=== PATIENT | male | born 2000 | race African-American/Black ===

== ENCOUNTER 2021-10-13 12:31 | Emergency (ER) | payer OTHER ==
[2021-10-13 12:48] VITALS: TEMP 98.2
[2021-10-13] MEDS ORDERED: DEXAMETHASONE SOD PHOSPHATE 10 MG/ML 1 ML VIAL IM STA (13:32)
--- NOTE | 2021-10-13 13:45 | ED ---
ENT HPI - General Chief complaint: ENT Stated complaint: sore throat, low back pain Time Seen by Provider: 10/13/21 13:03 Source: patient, RN notes reviewed Mode of arrival: ambulatory Limitations: no limitations - History of Present Illness Initial comments: This is a 20-year-old male who presents to the emergency department for a sore throat. Patient states that this started 3 days ago. Reports associated chest congestion. Denies any coughing. He works at a long-term care facility, and was exposed to a coworker who tested positive for COVID 2 days ago. States that the sore throat is making it difficult to swallow due to the pain. He has been using a lot of numbing throat sprays with little relief. Denies any fevers, chills, cough, dyspnea, chest pain, palpitations, abdominal pain, nausea, vomiting, diarrhea, back pain, or headaches. MD complaint: sore throat Onset/Timin -: days(s) Associated Symptoms: pain with swallowing - Related Data Previous Rx's Medication Instructions Recorded Amoxicillin 500 mg PO Q12HR 10 Days #20 cap 10/13/21 Allergies Allergy/AdvReac Type Severity Reaction Status Date / Time No Known Allergies Allergy Verified 10/13/21 14:24 Review of Systems ROS Statement: Those systems with pertinent positive or pertinent negative responses have been documented in the HPI. ROS Other: All systems not noted in ROS Statement are negative. Past Medical History Past Medical History: No Reported History History of Any Multi-Drug Resistant Organisms: None Reported Past Surgical History: No Surgical Hx Reported Past Psychological History: No Psychological Hx Reported Smoking Status: Never smoker Past Alcohol Use History: None Reported Past Drug Use History: Marijuana General Exam Limitations: no limitations General appearance: alert, in no apparent distress Head exam: Present: atraumatic, normocephalic, normal inspection ENT exam: Present: TM's normal bilaterally, normal external ear exam, other (3+ tonsillar hypertrophy with exudates bilaterally. Posterior pharyngeal erythema.) Neck exam: Present: other (Anterior cervical lymphadenopathy) Respiratory exam: Present: normal lung sounds bilaterally. Absent: respiratory distress, wheezes, rales, rhonchi, stridor Cardiovascular Exam: Present: regular rate, normal rhythm, normal heart sounds. Absent: systolic murmur, diastolic murmur, rubs, gallop, clicks Neurological exam: Present: alert, oriented X3, CN II-XII intact Psychiatric exam: Present: normal affect, normal mood Skin exam: Present: warm, dry, intact, normal color. Absent: rash Course Vital Signs 10/13/21 10/13/21 12:45 15:23 Temperature 98.2 F Pulse Rate 87 90 Respiratory 16 18 Rate Blood Pressure 110/59 125/78 O2 Sat by Pulse 100 96 Oximetry Medical Decision Making - Medical Decision Making This is a 20-year-old male who presents to the emergency department for a sore throat. COVID and influenza testing negative. Patient did test positive for strep throat. He was given IM Decadron for the sore throat and did note improvement in symptoms. Prescription for amoxicillin sent to the pharmacy. Advised to take [id number] ibuprofen and Tylenol as needed for pain and fevers. Prior to discharge, patient states that he has had some intermittent chest discomfort for a long period of time. We discussed that we can perform an EKG and order a chest x-ray for further evaluation. Patient states that he does not currently have insurance and inquired about the least expensive option. I spoke with registration, who believes that the EKG would be the more affordable option. Discussed this with the patient, and advised that his presentation does not appear cardiac, however a chest x-ray in addition to the EKG would offer him more of a complete workup. Patient declined a chest x-ray at this time due to cost. We did proceed with an EKG which was unremarkable. Return precautions reviewed in depth, the patient is instructed to return to the emergency department with any new, worsening, or concerning symptoms. Patient verbalized understanding. This case was discussed in detail with the attending ED physician. Presentation, findings, and treatment plan discussed in detail as well. - Lab Data Lab Results 10/13/21 10/13/21 10/13/21 Range/Units 13:12 13:12 13:41 Coronavirus (PCR) Not Detected (Not Detectd) Influenza Type A RNA Not Detected (Not Detectd) Influenza Type B (PCR) Not Detected (Not Detectd) Group A Strep Rapid Positive A (Negative) - EKG Data EKG Comments: Sinus rhythm. Ventricular rate 83 bpm, FL interval 127 ms, QRS duration 111 ms, QTC 405 ms. Disposition Clinical Impression: Strep pharyngitis Disposition: HOME SELF-CARE Additional Instructions: Return to the emergency department with any new, worsening, or concerning symptoms. Take the amoxicillin twice daily for 10 days. Alternate with ibuprofen and Tylenol as needed for fevers and pain relief. You may also continue using the throat numbing spray. Prescriptions: Amoxicillin 500 mg PO Q12HR 10 Days #20 cap Is patient prescribed a controlled substance at d/c from ED?: No Referrals: None,Stated [Primary Care Provider] - 1-2 days
[2021-10-13 15:25] VITALS: BP 125/78; PULSE 90; RESP 18
== END 2021-10-13 15:24 | disposition home or self-care (01) ==
LOC: EC 12:31
DX: J02.0 Streptococcal pharyngitis (principal); M54.50 Low back pain, unspecified; Z20.822 Contact with and (suspected) exposure to COVID-19
CPT/HCPCS: 93005; 87430; 87502; 87635; 99283; 96372; J1100

== ENCOUNTER → 2022-04-23 | Outpatient (CLI) | payer OTHER ==
--- NOTE | 2022-04-23 12:54 | XR ---
EXAMINATION TYPE: XR Hip Complete LT DATE OF EXAM: 04/23/2022 12:45 PM INDICATION: Patient age:Male; 21 years old; Reason for study: [id number]; COMPARISON: None. TECHNIQUE: The left hip was examined in the frontal and lateral projections and a AP pelvis. FINDINGS: No evidence for acute process, joint dislocation or significant soft tissue swelling. IMPRESSION: No acute process.
--- NOTE | 2022-04-23 12:57 | XR ---
EXAMINATION TYPE: XR lumbosacral spine min 4V DATE OF EXAM: 04/23/2022 12:45 PM INDICATION: Patient age:Male; 21 years old; Reason for study: [id number]; COMPARISON: None TECHNIQUE: Frontal, lateral and coned in L5-S1 lateral views of the spine. FINDINGS: No evidence of any acute osseous pathology. No evidence of loss of vertebral body height i s seen. There is normal alignment of the lumbar vertebral bodies. No significant degeneration changes throughout the spine. IMPRESSION: No acute fracture.
== END | disposition home or self-care (01) ==
LOC: RADXRMAIN 12:26
PROVIDERS: ATTEND Emergency Medicine
DX: S39.012A Strain of muscle, fascia and tendon of lower back, initial encounter (principal); M25.552 Pain in left hip; X58.XXXA Exposure to other specified factors, initial encounter
CPT/HCPCS: 72110; 73502